=== PATIENT | female | born 1985 | race Caucasian/White ===

== ENCOUNTER 2019-06-05 13:20 | Emergency (ER) | payer BC ==
[~2019-06-05] VITALS: Ht 149.9 cm; Wt 49.8 kg
[~2019-06-05 13:20] MED LIST: A/B OTIC AD; AZITHROMYCIN250 MG PO; CIPRO500 MG OR; CIPROFLOXACN500 MG PO; GENOPTIC0.3 % OP; NO HOME MEDS; PERCOCET1 TA4 PO; PHENERGAN12.5 MG/TA PO; PHENERGAN25 MG RE; ZOFRAN ODT4 MG PO
[2019-06-05 13:47] LABS: HEMOGLOBIN 14.6 g/dl (12.0-16.0); IMMATURE GRANULOCYTES 0.4 % (0.0-5.0); MEAN CORPUSCULAR HGB 30.6 pG CALC (26.0-32.0); MEAN CORPUSCULAR HGB CONC 33.6 g/L CALC (32.0-36.0); NEUT# 14.72 thou/uL (2.00-7.15); RED BLOOD COUNT 4.77 mill/uL (4.20-5.60); RED CELL DISTRI WIDTH 12.9 % (11.5-15.5)
[2019-06-05 13:51] LABS: HEMATOCRIT 43.4 % (37.0-47.0)
[2019-06-05] MEDS ORDERED: PAXIL40 MG PO (13:51)
[2019-06-05 14:27] LABS: ALKALINE PHOSPHATASE 93 u/l (38-126); BILIRUBIN, TOTAL 1.7 mg/dL (0.0-1.4); BUN 18 mg/dL (7-17); BUN/CREATININE RATIO 34 (12-20 (CALC)); CARBON DIOXIDE 23 mmol/l (22-30); CHLORIDE 105 mmol/l (95-108); CREATININE 0.5 mg/dL (0.5-1.0); GFR > 60 ML/MIN (>=60 (CALC)); GFR FOR AFR.AMER. > 60 ML/MIN (>=60 (CALC)); SGOT/AST 23 u/l (14-36)
[2019-06-05 14:28] LABS: ALBUMIN 4.8 g/dL (3.2-5.0); ANION GAP 18 (6-22 (CALC)); SODIUM 142 mmol/l (137-146); TOTAL PROTEIN 8.3 g/dL (6.3-8.2)
[2019-06-05 17:08] LABS: URINE BILIRUBIN - DIPSTICK NEGATIVE (NEGATIVE); URINE BLOOD DIPSTICK TRACE-INTACT (NEGATIVE); URINE COLOR YELLOW; URINE GLUCOSE - DIPSTICK NEGATIVE (NEGATIVE); URINE KETONE 40 mg/dL (NEGATIVE); URINE LEUK ESTERASE NEGATIVE (NEGATIVE); URINE NITRITE - DIPSTICK NEGATIVE (Negative); URINE PH 5.5 (4.5-8.0); URINE PROTEIN - DIPSTICK NEGATIVE (NEG-TRACE); URINE SPECIFIC GRAVITY 1.025; URINE UROBILINOGEN - DIPSTICK 0.2 E.U./dL (0.2)
[2019-06-05] MEDS ORDERED: ZOFRAN4 MG/TAB PO (19:12)
[2019-06-05 19:34] VITALS: BP 95/52
== END 2019-06-05 19:35 | disposition home or self-care (01) | DRG 392 ==
LOC: ED 13:20
DX: A08.11 Acute gastroenteropathy due to Norwalk agent (principal)

== ENCOUNTER 2020-04-19 13:20 | Emergency (ER) | payer BC ==
[~2020-04-19] VITALS: Ht 149.9 cm; Wt 70.0 kg
[~2020-04-19 13:20] MED LIST changes: +PAXIL40 MG PO; +ZOFRAN4 MG/TAB PO
[2020-04-19 14:15] LABS: IMMATURE GRANULOCYTES 0.4 % (0.0-5.0); MEAN CORPUSCULAR HGB 27.3 pG CALC (26.0-32.0); MEAN CORPUSCULAR HGB CONC 31.1 g/dL CAL (32.0-36.0); NEUT# 8.43 thou/uL (2.00-7.15); RED BLOOD COUNT 3.84 mill/uL (4.20-5.60); RED CELL DISTRI WIDTH 13.4 % (11.5-15.5)
[2020-04-19 14:19] LABS: HEMATOCRIT 33.8 % (37.0-47.0); HEMOGLOBIN 10.5 g/dl (12.0-16.0)
[2020-04-19 14:20] LABS: HCG SERUM/URINE (NEG/POS) NEGATIVE (NEGATIVE)
[2020-04-19 14:29] LABS: ALKALINE PHOSPHATASE 100 u/l (38-126); BUN 12 mg/dL (7-17); BUN/CREATININE RATIO 26 (12-20 (CALC)); CHLORIDE 100 mmol/l (95-108); CREATININE 0.5 mg/dL (0.5-1.0); GFR > 60 ML/MIN (>=60 (CALC)); GFR FOR AFR.AMER. > 60 ML/MIN (>=60 (CALC)); SGOT/AST 21 u/l (14-36); SODIUM 136 mmol/l (137-146); TOTAL PROTEIN 7.5 g/dL (6.3-8.2)
[2020-04-19 14:42] LABS: ALBUMIN 3.8 g/dL (3.2-5.0); ANION GAP 10 (6-22 (CALC)); BILIRUBIN, TOTAL 0.5 mg/dL (0.0-1.4); CARBON DIOXIDE 29 mmol/l (22-30); POTASSIUM 3.1 mmol/l (3.5-5.1); URINE BILIRUBIN - DIPSTICK NEGATIVE (NEGATIVE); URINE BLOOD DIPSTICK TRACE-INTACT (NEGATIVE); URINE COLOR YELLOW; URINE GLUCOSE - DIPSTICK NEGATIVE (NEGATIVE); URINE KETONE NEGATIVE (NEGATIVE); URINE LEUK ESTERASE NEGATIVE (NEGATIVE); URINE NITRITE - DIPSTICK NEGATIVE (Negative); URINE PH 7.5 (4.5-8.0); URINE PROTEIN - DIPSTICK 30 mg/dL (NEG-TRACE); URINE SPECIFIC GRAVITY 1.025
[2020-04-19 14:52] LABS: URINE AMORPH SEDIMENT FEW hpf (NONE-FEW); URINE SQUAMOUS EPITHELIAL CELL FEW EPI/hpf (0-FEW)
[2020-04-19 16:00] VITALS: BP 100/56
== END 2020-04-19 15:55 | disposition home or self-care (01) | DRG 866 ==
LOC: ED 13:20
DX: B34.9 Viral infection, unspecified (principal); Z20.828 Contact with and (suspected) exposure to other viral communicable diseases